=== PATIENT | male | born 1960 | race Caucasian/White ===

== ENCOUNTER → 2021-06-28 | Outpatient (CLI) | payer SELFPAY | LOC: LAB 15:55 | PROVIDERS: ATTEND Internal Medicine Gastroenterology | DX: Z01.812 Encounter for preprocedural laboratory examination (principal); Z20.822 Contact with and (suspected) exposure to COVID-19 | CPT/HCPCS: C9803; U0003 ==

== ENCOUNTER → 2021-07-01 | Day surgery (SDC) | payer OTHER ==
[~2021-07-01] MED LIST: GLYCOPYRROLATE 1 MG/5 ML VIAL. ONE; IPRATRPIUM/ALBUTEROL 0.5/2.5MG 3 ML NEBU. NEB PRN; IV RINGERS SOLUTION,LACTATED 1,000 ML IV SCH; LIDOCAINE 2% PF 5 ML VIAL. ONE; MIDAZOLAM HCL PF 2 MG/2 ML VIAL. IV ONE; ONDANSETRON PF 4 MG/2 ML VIAL. IV PRN; PROPOFOL 10,000 MCG/ML (20ML) VIAL IV ONE
[2021-07-01 11:21] VITALS: BP 134/97
--- NOTE | 2021-07-05 17:07 | PATHOLOGY ---
[facility] Accession Number: [id number] . 01 Material submitted: . PART A: colon - ASCENDING COLON POLYP HOT SNARE. Modifiers: ascending PART B: colon - TRANSVERSE COLON POLYP BIOPSY X2. Modifiers: transverse . 02 Diagnosis: A. Colonic mucosa, ascending colon polyp: - Tubular adenoma. . B. Segments (2) of colonic mucosa, transverse colon polyp x2: - Hyperplastic polyps. . (JPM:danyell; 07/05/2021) [facility] 07/05/2021 1125 Local . 02 Comment: Sections of the ascending colon biopsy reveal a tubular adenoma showing no high-grade dysplasia or evidence of malignancy. . Sections of the transverse colon biopsies reveal 2 hyperplastic polyps, one of which shows fibrosis and chronic inflammation of the lamina propria. There is no high-grade dysplasia or evidence of malignancy. . (ERLINDAM:danyell; 07/05/2021) . 02 Electronically signed: . Tim Mcgregor MD, Pathologist NPI- [id number] . 01 Gross description: . A. Received in formalin labeled "Devin Steve, ascending colon polyp hot snare" is a fragment of james-brown soft tissue measuring 0.6 x 0.4 x 0.3 cm. The margin is inked and the specimen is bisected. The specimen is submitted entirely in A1. . B. Received in formalin labeled "Devin Steve, transverse colon polyp BX x2" are two fragments of james-brown soft tissue measuring in aggregate 0.6 x 0.5 x 0.1 cm. The specimen is submitted entirely in B1. ([facility]; 07/02/2021) [facility] 07/02/2021 1056 Local . 02 Pathologist provided ICD-10: D12.2, K63.5 . 02 CPT . 731352, [id number] Specimen Comment: A courtesy copy of this report has been sent to [phone], [phone] Specimen Comment: [id number] Specimen Comment: Report sent to / DR GARIBAY Specimen Comment: A duplicate report has been generated due to demographic updates. Performed at: 01 [facility] [address] [facility] [address], [place] [id number] MD Champ Calixto MD Phone: [phone] Performed at: 02 [facility] [place] [address] [place], [place] [id number] MD Tim Mcgregor MD Phone: [phone]
== END | disposition home or self-care (01) ==
LOC: SURG 09:11
PROVIDERS: ATTEND Internal Medicine Gastroenterology
DX: Z12.11 Encounter for screening for malignant neoplasm of colon (principal); K57.30 Diverticulosis of large intestine without perforation or abscess without bleeding; D12.2 Benign neoplasm of ascending colon; K63.89 Other specified diseases of intestine; Z79.899 Other long term (current) drug therapy; Z72.89 Other problems related to lifestyle
CPT/HCPCS: 45380; 45381; 45385; J2001; J2704; J3490; J7120